=== PATIENT | male | born 1980 | race Caucasian/White ===

== ENCOUNTER 2018-12-26 23:44 | Emergency (ER) | payer BC, OTHER ==
[~2018-12-26] VITALS: Ht 185.4 cm; Wt 86.0 kg
[2018-12-26] MEDS ORDERED: SOD CHLORIDE 0.9% 1,000 ML IV STA (23:45)
[2018-12-26 23:54] VITALS: Ht 185.4 cm; Wt 86.0 kg
[2018-12-27] MEDS ORDERED: DULO60CA59 PO (02:26)
[2018-12-27] MEDS ORDERED: OMEP20CA16 PO (02:26)
[2018-12-27] MEDS ORDERED: DULO20CA17 PO (02:26)
[2018-12-27] MEDS ORDERED: QUET25TA33 PO (02:26)
--- NOTE | 2018-12-27 03:14 | ERD ---
ER Documentation Chief Complaint Chief Complaint syncopal episode after leaning over approx 1-1.5 min, no trauma. 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 Yimi han was called and initially the patient refused to come down to the ER, however he decided to come for evaluation. He denies any complaints whatsoever including chest pain nausea vomiting fevers chills or any focal neurologic complaints. Upon further history, it seems the patient had a similar episode approximately 3 weeks ago and had a full work-up including a CT scan of the head and chest x-ray which were negative approximately 3 weeks ago. Patient currently has no complaints whatsoever. Only medications are Cymbalta and I believe Protonix. No other current issues. No recent travel. Denies any focal neurologic complaints. Denies chest pain. Denies palpitations. Denies any other current issues. ROS All systems reviewed and are negative except as per history of present illness. Medications Home Meds Reported Medications Omeprazole* (Omeprazole*) 20 Mg Capsule.dr, 20 MG PO BID, #60 CAP 12/27/18 Duloxetine Hcl* (Duloxetine Hcl*) 60 Mg Capsule.dr, 60 MG PO DAILY for 30 Days, #30 12/27/18 Duloxetine Hcl* (Duloxetine Hcl*) 20 Mg Capsule.dr, 20 MG PO DAILY for 30 Days, #30 12/27/18 Quetiapine Fumarate* (Quetiapine Fumarate*) 25 Mg Tablet, 25 MG PO QHS for 30 Days, #30 12/27/18 Allergies Allergies: Coded Allergies: Penicillins (Verified Allergy, Unknown, rash, 12/26/18) PMhx/Soc Medical and Surgical Hx: pt denies Medical Hx, pt denies Surgical Hx Hx Alcohol Use: No Hx Substance Use: No Hx Tobacco Use: No Smoking Status: Unknown if ever smoked Physical Exam Vitals Vital Signs Date Temp Pulse Resp B/P (MAP) Pulse Ox O2 O2 Flow FiO2 Time Delivery Rate 12/26/18 98.7 95 18 129/95 100 23:54 (106) Physical Exam Const: No acute distress Head: Atraumatic Eyes: Normal Conjunctiva ENT: Normal External Ears, Nose and Mouth. Neck: Full range of motion. No meningismus. Resp: Clear to auscultation bilaterally Cardio: Regular rate and rhythm, no murmurs Abd: Soft, non tender, non distended. Normal bowel sounds Skin: No petechiae or rashes Back: No midline or flank tenderness Ext: No cyanosis, or edema Neur: Awake and alert Psych: Normal Mood and Affect Result Diagram: 12/27/18 0012 12/27/18 0012 Results 24 hrs Laboratory Tests Test 12/26/18 23:51 12/27/18 00:12 12/27/18 00:45 Bedside Glucose 133 mg/dL White Blood Count 4.2 10^3/ul Red Blood Count 4.17 10^6/ul Hemoglobin 11.9 g/dl Hematocrit 34.7 % Mean Corpuscular Volume 83.2 fl Mean Corpuscular Hemoglobin 28.5 pg Mean Corpuscular 34.3 g/dl Hemoglobin Concent Red Cell Distribution Width 12.1 % Platelet Count 183 10^3/UL Mean Platelet Volume 9.7 fl Immature Granulocytes % 0.200 % Neutrophils % 44.0 % Lymphocytes % 40.9 % Monocytes % 10.8 % Eosinophils % 3.1 % Basophils % 1.0 % Nucleated Red Blood Cells % 0.0 /100WBC Immature Granulocytes # 0.010 10^3/ul Neutrophils # 1.8 10^3/ul Lymphocytes # 1.7 10^3/ul Monocytes # 0.5 10^3/ul Eosinophils # 0.1 10^3/ul Basophils # 0.0 10^3/ul Nucleated Red Blood Cells # 0.0 10^3/ul Sodium Level 136 mmol/L Potassium Level 4.4 mmol/L Chloride Level 96 mmol/L Carbon Dioxide Level 30 mmol/L Anion Gap 10 Blood Urea Nitrogen 26 mg/dl Creatinine 1.00 mg/dl Est Glomerular Filtrat > 60 mL/min Rate mL/min Glucose Level 131 mg/dl Calcium Level 9.6 mg/dl Total Bilirubin 0.3 mg/dl Direct Bilirubin 0.00 mg/dl Indirect Bilirubin 0.3 mg/dl Aspartate Amino 19 IU/L Transf (AST/SGOT) Alanine 24 IU/L Aminotransferase (ALT/SGPT) Alkaline Phosphatase 58 IU/L Troponin I < 0.012 ng/ml Total Protein 7.5 g/dl Albumin 4.6 g/dl Globulin 2.90 g/dl Albumin/Globulin Ratio 1.58 Thyroid Stimulating 12.000 MIU/L Hormone (TSH) Free Thyroxine Index 2.35 ug/ml Thyroxine (T4) 7.2 ug/dl Triiodothyronine (T3) Uptake 32.6 % Urine Color COLORLESS Urine Clarity CLEAR Urine pH 5.0 Urine Specific [place] 1.008 Urine Ketones NEGATIVE mg/dL Urine Nitrite NEGATIVE mg/dL Urine Bilirubin NEGATIVE mg/dL Urine Urobilinogen NEGATIVE mg/dL Urine Leukocyte Esterase NEGATIVE Bridgette/ul Urine Hemoglobin NEGATIVE mg/dL Urine Glucose NEGATIVE mg/dL Urine Total Protein NEGATIVE mg/dl Current Medications Medications Dose Sig/Luz Start Time Status Last (Trade) Ordered Route PRN Stop Time Admin Dose Reason Admin Sodium 1,000 ml @ Q1H STAT 12/26/18 DC 12/26/18 Chloride 1,000 mls/hr IV 23:45 23:59 12/27/18 00:44 Procedures/MDM Emergency department course: Patient seen and evaluated triage nurse in bed for MD evaluation. Placed on continuous cardiac monitoring with continuous pulse oximetry. Had blood work drawn. Was given normal saline fluid bolus. Serial examinations were normal here EKG: Rate/Rhythm: [Normal Sinus Rhythm] QRS, ST, T-waves: [No changes consistent w/ acute ischemia] Impression: [No evidence of ischemia or arrhythmia] Rhythm strip: Rate/Rhythm: Normal Sinus Rhythm Impression: No evidence of ischemia or arrhythmia Medical decision making: Patient's syncopal symptoms have stabilized while in the department and are suitable for outpatient follow up. Exam and work up not consistent w/ ischemia, arrhythmia, stroke, PE or dissection. Departure Diagnosis: Primary Impression: Syncope Syncope type: unspecified Qualified Codes: R55 - Syncope and collapse Condition: Stable Patient Instructions: Syncope, Unk Cause ELLIE NEGRETE December 27, 2018 03:14
[2018-12-27 03:35] VITALS: BP 112/70; PULSE 89; RESP 18
== END 2018-12-27 03:35 | disposition home or self-care (01) ==
LOC: E/R 23:44
DX: R55 Syncope and collapse (principal)
CPT/HCPCS: 36415; 80053; 80307; 82962; 84436; 84443; 84479; 84484; 85025; 86337; 93005; 99284; J7030